=== PATIENT | male | born 1980 | race Caucasian/White ===

== ENCOUNTER 2021-07-20 18:20 | Emergency (ER) | payer SELFPAY ==
[2021-07-20 18:46] LABS: BASOPHIL 0.5 % (0-2); EOSINOPHIL 0.5 % (0-5); HCT 44.9 % (42.0-52.0); LYMPHOCYTE 26.7 % (15-48); MCH 30.1 pg (25.0-31.0); MCHC 33.4 g/dL (32.0-36.0); MONOCYTE 8.7 % (0-12); MPV 11.9 fL (6.0-9.5); NEUTROPHIL 63.4 % (41-80); NRBC 0; PLT 192 K/uL (150-400); RBC 4.99 M/uL (4.70-6.00); RDW 13.3 % (11.5-14.0); WBC 10.8 K/uL (4.0-10.5)
[2021-07-20 18:50] LABS: INR 1.07 (0.9-1.2); PROTHROMBIN TIME 13.3 SECONDS (11.8-13.4); PTT 24.5 SECONDS (24.4-34.7)
[2021-07-20 19:02] LABS: ALBUMIN 3.9 g/dL (3.4-5.0); BILIRUBIN - TOTAL 1.1 mg/dL (0.2-1.0); BUN/CREAT RATIO (CALC) 12.4 RATIO; CREATININE 1.21 mg/dL (0.67-1.17); GLOBULIN (CALCULATION) 3.4 g/dL; POTASSIUM 4.1 mmol/L (3.5-5.1); TOTAL PROTEIN 7.3 g/dL (6.4-8.2)
== END 2021-07-20 23:53 | disposition home or self-care (01) ==
LOC: FER 18:20
PROVIDERS: Internal Medicine
DX: R07.89 Other chest pain (principal); I10 Essential (primary) hypertension; I25.10 Atherosclerotic heart disease of native coronary artery without angina pectoris
CPT/HCPCS: 36415; 71045; 80053; 83690; 84484; 85025; 85379; 85610; 85730; 93005; J2405; J7030

== ENCOUNTER 2021-11-11 14:16 | Inpatient (IN) | payer OTHER ==
[~2021-11-11] VITALS: Ht 188 cm; Wt 108.0 kg
[2021-11-11 15:38] LABS: BASOPHIL 0.3 % (0-2); EOSINOPHIL 0.3 % (0-5); HCT 47.1 % (42.0-52.0); HGB 16.3 g/dl (13.2-18.0); LYMPHOCYTE 12.9 % (15-48); MCH 30.8 pg (25.0-31.0); MCHC 34.6 g/dL (32.0-36.0); MCV 88.9 fL (78.0-100.0); NEUTROPHIL 80.2 % (41-80); NRBC 0; PLT 151 K/uL (150-400); RDW 12.9 % (11.5-14.0); WBC 11.5 K/uL (4.0-10.5)
[2021-11-11 15:52] LABS: INR 1.17 (0.9-1.2); PROTHROMBIN TIME 14.3 SECONDS (11.8-13.4); PTT 24.7 SECONDS (24.4-34.7)
[2021-11-11 16:04] LABS: ALBUMIN 3.5 g/dL (3.4-5.0); BILIRUBIN - TOTAL 0.8 mg/dL (0.2-1.0); BUN/CREAT RATIO (CALC) 6.1 RATIO; CREATININE 2.12 mg/dL (0.67-1.17); GLOBULIN (CALCULATION) 3.7 g/dL; POTASSIUM 3.8 mmol/L (3.5-5.1); TOTAL PROTEIN 7.2 g/dL (6.4-8.2)
[2021-11-11 16:22] LABS: BILIRUBIN NEGATIVE (NEGATIVE); BLOOD NEGATIVE Ery/uL (NEGATIVE); CLARITY CLEAR (CLEAR); GLUCOSE (U) NORMAL (NORMAL); LEUKOCYTES NEGATIVE Leu/uL (NEGATIVE); NITRITE NEGATIVE (NEGATIVE); PROTEIN 1+ mg/dL (NEGATIVE); SPECIFIC GRAVITY >=1.030 (1.001-1.030); UROBILINOGEN 0.2 mg/dL (0.2-1.0)
[2021-11-11 16:25] LABS: COLOR AMBER (YELLOW)
[2021-11-11 16:27] LABS: MUCOUS TRACE; URINARY WBC RARE
[2021-11-11 16:28] LABS: MARIJUANA (THC) POSITIVE (NEGATIVE)
[2021-11-11 16:29] LABS: AMPHETAMINES NEGATIVE (NEGATIVE); BARBITURATES NEGATIVE (NEGATIVE); ECSTASY (MDMA) NEGATIVE (NEGATIVE); METHADONE NEGATIVE (NEGATIVE); OPIATES POSITIVE (NEGATIVE); OXYCODONE NEGATIVE (NEGATIVE)
[2021-11-12] MEDS ORDERED: DESYREL50 MG PO (02:55)
[2021-11-12] MEDS ORDERED: LISINOPRIL20 MG PO (02:56)
[2021-11-12] MEDS ORDERED: LOVAZA1 GM PO (03:02)
[2021-11-12] MEDS ORDERED: TOPROL XL 50 MG50 MG PO (03:02)
[2021-11-12 07:13] LABS: BASOPHIL 0.4 % (0-2); EOSINOPHIL 0.5 % (0-5); HCT 43.8 % (42.0-52.0); HGB 14.7 g/dl (13.2-18.0); LYMPHOCYTE 10.7 % (15-48); MCH 30.6 pg (25.0-31.0); MCHC 33.6 g/dL (32.0-36.0); MCV 91.1 fL (78.0-100.0); MONOCYTE 6.6 % (0-12); MPV 11.7 fL (6.0-9.5); NEUTROPHIL 81.4 % (41-80); NRBC 0; PLT 93 K/uL (150-400); RBC 4.81 M/uL (4.70-6.00); RDW 12.9 % (11.5-14.0); WBC 7.5 K/uL (4.0-10.5)
[2021-11-12 07:41] LABS: ALBUMIN 3.3 g/dL (3.4-5.0); BILIRUBIN - TOTAL 1.3 mg/dL (0.2-1.0); C-REACTIVE PROTEIN 3.9 mg/dL (<=0.90); CREATININE 0.89 mg/dL (0.67-1.17); GLOBULIN (CALCULATION) 3.1 g/dL; MAGNESIUM 1.7 mg/dL (1.8-2.4); PHOSPHORUS 2.5 mg/dL (2.6-4.7); POTASSIUM 3.9 mmol/L (3.5-5.1); TOTAL PROTEIN 6.4 g/dL (6.4-8.2)
[2021-11-13 04:38] LABS: BASOPHIL 0.5 % (0-2); EOSINOPHIL 1.3 % (0-5); HCT 35.9 % (42.0-52.0); HGB 12.3 g/dl (13.2-18.0); LYMPHOCYTE 19.6 % (15-48); MCH 31.6 pg (25.0-31.0); MCHC 34.3 g/dL (32.0-36.0); MCV 92.3 fL (78.0-100.0); MONOCYTE 7.4 % (0-12); MPV 11.9 fL (6.0-9.5); NEUTROPHIL 70.7 % (41-80); NRBC 0; RBC 3.89 M/uL (4.70-6.00); RDW 12.8 % (11.5-14.0); WBC 5.6 K/uL (4.0-10.5)
[2021-11-13 04:50] LABS: PLT 68 K/uL (150-400)
[2021-11-13 05:03] LABS: ALBUMIN 2.7 g/dL (3.4-5.0); BILIRUBIN - TOTAL 1.1 mg/dL (0.2-1.0); BUN/CREAT RATIO (CALC) 5.2 RATIO; CREATININE 0.77 mg/dL (0.67-1.17); MAGNESIUM 2.1 mg/dL (1.8-2.4); POTASSIUM 3.4 mmol/L (3.5-5.1); TOTAL PROTEIN 5.7 g/dL (6.4-8.2)
--- NOTE | 2021-11-15 15:16 | NUR ---
11/15/21 Mr. Hood lives at home with his spouse, 3 y/o, his son is in the home every other weekend, spouse's grandmother, and the grandmother's adoptive child with a disability. He works 1.5 from home. They have recently moved to a new home since the families merged. They are in the process of selling their former homes. Mr. Hood is experiencing anxity. He has joined a website, "[facility]" for supportive services. - Mr. Hood reports to drink 2 beers 2 times per week. He plans to quit drinking altogether due to a dx of pancreatitis. He was referred to [facility] or [facility] for counseling services.
[2021-11-16 06:42] LABS: HCT 36.7 % (42.0-52.0); HGB 12.3 g/dl (13.2-18.0); MCH 30.7 pg (25.0-31.0); MCHC 33.5 g/dL (32.0-36.0); MCV 91.5 fL (78.0-100.0); RBC 4.01 M/uL (4.70-6.00); RDW 12.7 % (11.5-14.0); WBC 3.4 K/uL (4.0-10.5)
[2021-11-16 06:46] LABS: ALBUMIN 2.5 g/dL (3.4-5.0); BILIRUBIN - TOTAL 0.4 mg/dL (0.2-1.0); BUN/CREAT RATIO (CALC) 2.6 RATIO; CREATININE 0.77 mg/dL (0.67-1.17); GLOBULIN (CALCULATION) 3.5 g/dL; POTASSIUM 4.1 mmol/L (3.5-5.1)
[2021-11-16] MEDS ORDERED: OXY-IR 5MG5 MG PO (17:09)
[2021-11-16] MEDS ORDERED: ONDANSETRON ODT4 MG PO (17:09)
== END 2021-11-16 17:45 | disposition home or self-care (01) | DRG 439 ==
LOC: FER 14:16 → FOFB 17:44 → FTCU 17:44 → FOFB 21:44 → FTCU 11-12 08:38 → FMS 11-16 15:15
PROVIDERS: Internal Medicine; Nurse Practitioner; Nurse Practitioner Family; ADMIT Internal Medicine
DX: K85.90 Acute pancreatitis without necrosis or infection, unspecified (principal); N17.9 Acute kidney failure, unspecified; K86.3 Pseudocyst of pancreas; E87.1 Hypo-osmolality and hyponatremia; Z20.822 Contact with and (suspected) exposure to COVID-19; E86.0 Dehydration; F10.10 Alcohol abuse, uncomplicated; I25.10 Atherosclerotic heart disease of native coronary artery without angina pectoris; K21.9 Gastro-esophageal reflux disease without esophagitis; F41.9 Anxiety disorder, unspecified; D69.6 Thrombocytopenia, unspecified; F41.1 Generalized anxiety disorder; Z79.899 Other long term (current) drug therapy
CPT/HCPCS: 36415; 80053; 80061; 80305; 81001; 82150; 83605; 83690; 83735; 84100; 84145; 84484; 85025; 85610; 85730; 86140; 93005; 94010; 94760; 94762; C9113; J1170; J1650; J2060; J2270; J2405; J3411; J3475; J7030; J7120; U0002

== ENCOUNTER 2022-01-09 07:23 | Emergency (ER) | payer OTHER ==
[~2022-01-09 07:23] MED LIST: DESYREL50 MG PO; LISINOPRIL20 MG PO; LOVAZA1 GM PO; ONDANSETRON ODT4 MG PO; OXY-IR 5MG5 MG PO; TOPROL XL 50 MG50 MG PO
[2022-01-09 08:04] LABS: BASOPHIL 1.1 % (0-2); EOSINOPHIL 0.6 % (0-5); HCT 41.2 % (42.0-52.0); HGB 14.1 g/dl (13.2-18.0); LYMPHOCYTE 29.2 % (15-48); MCH 29.7 pg (25.0-31.0); MCHC 34.2 g/dL (32.0-36.0); MCV 86.9 fL (78.0-100.0); MONOCYTE 8.2 % (0-12); MPV 11.9 fL (6.0-9.5); NEUTROPHIL 60.7 % (41-80); NRBC 0; PLT 134 K/uL (150-400); RBC 4.74 M/uL (4.70-6.00); WBC 4.6 K/uL (4.0-10.5)
[2022-01-09 08:07] LABS: INR 1.24 (0.9-1.2); PROTHROMBIN TIME 14.9 SECONDS (11.8-13.4); PTT 26.3 SECONDS (24.4-34.7)
[2022-01-09 08:20] LABS: ALBUMIN 3.5 g/dL (3.4-5.0); BILIRUBIN - TOTAL 0.8 mg/dL (0.2-1.0); BUN/CREAT RATIO (CALC) 21.2 RATIO; CREATININE 0.99 mg/dL (0.67-1.17); GLOBULIN (CALCULATION) 3.2 g/dL; MAGNESIUM 1.9 mg/dL (1.8-2.4); POTASSIUM 3.3 mmol/L (3.5-5.1); TOTAL PROTEIN 6.7 g/dL (6.4-8.2)
[2022-01-09 08:29] LABS: LACTIC ACID 3.5 mmol/L (0.4-1.9)
[2022-01-09 11:18] LABS: BILIRUBIN NEGATIVE (NEGATIVE); BLOOD NEGATIVE Ery/uL (NEGATIVE); CLARITY CLEAR (CLEAR); COLOR YELLOW (YELLOW); GLUCOSE (U) NORMAL (NORMAL); LEUKOCYTES NEGATIVE Leu/uL (NEGATIVE); NITRITE NEGATIVE (NEGATIVE); PROTEIN NEGATIVE (NEGATIVE); SPECIFIC GRAVITY 1.015 (1.001-1.030); UROBILINOGEN 0.2 mg/dL (0.2-1.0); pH 5.5 (5.0-9.0)
[2022-01-09] MEDS ORDERED: OXYCODONE HCL10 MG PO (12:22)
[2022-01-09] MEDS ORDERED: PHENERGAN25 M1 PO (12:22)
== END 2022-01-09 12:55 | disposition home or self-care (01) ==
LOC: FER 07:23
PROVIDERS: Emergency Medicine
DX: K86.0 Alcohol-induced chronic pancreatitis (principal); K70.9 Alcoholic liver disease, unspecified; I10 Essential (primary) hypertension; Z79.899 Other long term (current) drug therapy; Z20.822 Contact with and (suspected) exposure to COVID-19; Z28.311 Partially vaccinated for COVID-19
CPT/HCPCS: 36415; 71045; 80053; 81003; 83605; 83690; 83735; 84145; 84484; 85025; 85610; 85730; 93005; G0480; J1170; J2405; J7030; Q9967; U0002

== ENCOUNTER 2022-06-27 14:56 | Emergency (ER) | payer OTHER ==
[~2022-06-27 14:56] MED LIST changes: +OXYCODONE HCL10 MG PO; +PHENERGAN25 M1 PO
== END 2022-06-27 16:58 | disposition left against medical advice (07) ==
LOC: FER 14:56
DX: S93.401A Sprain of unspecified ligament of right ankle, initial encounter (principal); Z53.29 Procedure and treatment not carried out because of patient's decision for other reasons; X58.XXXA Exposure to other specified factors, initial encounter
CPT/HCPCS: 73600